=== PATIENT | female | born 1990 | race Caucasian/White ===

== ENCOUNTER 2016-07-30 12:47 | Emergency (ER) | payer SELFPAY ==
[~2016-07-30] VITALS: Ht 157.5 cm; Wt 117.8 kg
[2016-07-30 12:52] VITALS: BP 133/83
== END 2016-07-30 14:35 | disposition home or self-care (01) ==
LOC: ED 13:48
DX: N30.01 Acute cystitis with hematuria (principal)
CPT/HCPCS: 99283

== ENCOUNTER 2016-09-25 19:12 | Emergency (ER) | payer MEDICAID ==
[~2016-09-25] VITALS: Ht 157.5 cm; Wt 115.7 kg
[2016-09-25] MEDS ORDERED: ONDANSETRON ODT 4 MG PO ONE (19:30)
[2016-09-25] MEDS ORDERED: ONDANSETRON ODT 4 MG ONE (19:31)
[2016-09-25 20:09] LABS: ASPARTATE AMINO TRANSFERASE 21 U/L (15-37); BLOOD UREA NITROGEN 15 mg/dL (7-18)
[2016-09-25] MEDS ORDERED: SODIUM CHLORIDE FLUSH 10ML SYR IVF ONE (21:00)
[2016-09-25] MEDS ORDERED: MAALOX/HYOSCYAMINE/LIDOCAINE 45 ML BOTTLE PO ONE (21:00)
[2016-09-25] MEDS ORDERED: SODIUM CHLORIDE 0.9% 1,000ML IVBOLUS ONE (21:00)
[2016-09-25] MEDS ORDERED: FAMOTIDINE 20 MG/2 ML IVP ONE (21:00)
[2016-09-25] MEDS ORDERED: FAMOTIDINE 20 MG/2 ML ONE (21:18)
[2016-09-25] MEDS ORDERED: MAALOX/HYOSCYAMINE/LIDOCAINE 45 ML BOTTLE ONE (21:18)
[2016-09-25 21:28] VITALS: BP 113/79
== END 2016-09-25 22:24 | disposition home or self-care (01) ==
LOC: ED 22:18
DX: R11.2 Nausea with vomiting, unspecified (principal); R19.7 Diarrhea, unspecified; R10.13 Epigastric pain; Z88.6 Allergy status to analgesic agent
CPT/HCPCS: 36415; 76700; 80053; 81001; 83690; 84703; 85025; 87086; 96361; 96374; 99285; J7030; Q0162; S0028

== ENCOUNTER 2017-02-10 20:35 | Emergency (ER) | payer MEDICAID ==
[~2017-02-10] VITALS: Ht 157.5 cm; Wt 107.3 kg
[2017-02-10] MEDS ORDERED: DIAZEPAM 5 MG/ML, 2ML IM STA (21:27)
[2017-02-10] MEDS ORDERED: HYDROcodone/APAP 10/325 MG TABLET PO STA (21:27)
[2017-02-10] MEDS ORDERED: KETOROLAC 60 MG/2 ML IM ONE (21:30)
[2017-02-10] MEDS ORDERED: HYDROcodone/APAP 10/325 MG TABLET ONE (21:35)
[2017-02-10] MEDS ORDERED: KETOROLAC 30 MG/1 ML ONE (21:35)
[2017-02-10] MEDS ORDERED: DIAZEPAM 5 MG TABLET ONE (21:35)
[2017-02-10 23:45] VITALS: BP 136/76
== END 2017-02-10 23:47 | disposition home or self-care (01) ==
LOC: ED 23:30
DX: S39.012A Strain of muscle, fascia and tendon of lower back, initial encounter (principal); X58.XXXA Exposure to other specified factors, initial encounter; Y93.89 Activity, other specified; Y99.8 Other external cause status; Y92.89 Other specified places as the place of occurrence of the external cause
CPT/HCPCS: 96372; 99284; J1885; J3360

== ENCOUNTER 2018-02-03 02:53 | Emergency (ER) | payer BC ==
[~2018-02-03] VITALS: Ht 157.5 cm; Wt 133.6 kg
[2018-02-03 02:55] VITALS: BP 135/80
[2018-02-03] MEDS ORDERED: DEXAMETHASONE 4 MG TABLET ONE (03:24)
[2018-02-03] MEDS ORDERED: DEXAMETHASONE 4 MG TABLET PO ONE (03:30)
== END 2018-02-03 04:13 | disposition home or self-care (01) ==
LOC: ED 04:05
DX: J02.9 Acute pharyngitis, unspecified (principal); J00 Acute nasopharyngitis [common cold]
CPT/HCPCS: 87081; 87880; 99284

== ENCOUNTER 2018-02-06 21:38 | Emergency (ER) | payer BC ==
[~2018-02-06] VITALS: Ht 157.5 cm; Wt 131.7 kg
[2018-02-06 21:45] VITALS: BP 132/84
[2018-02-06] MEDS ORDERED: DIAZEPAM 5 MG TABLET ONE (22:13)
[2018-02-06] MEDS ORDERED: HYDROcodone/APAP 5/325 TABLET ONE (22:14)
[2018-02-06] MEDS ORDERED: DIAZEPAM 5 MG TABLET PO ONE (22:30)
[2018-02-06] MEDS ORDERED: HYDROcodone/APAP 5/325 TABLET PO ONE (22:30)
== END 2018-02-06 23:01 | disposition home or self-care (01) ==
LOC: ED 22:25
DX: S39.012A Strain of muscle, fascia and tendon of lower back, initial encounter (principal); M54.41 Lumbago with sciatica, right side; X58.XXXA Exposure to other specified factors, initial encounter; Y93.89 Activity, other specified; Y92.89 Other specified places as the place of occurrence of the external cause; Y99.8 Other external cause status
CPT/HCPCS: 99283

== ENCOUNTER 2020-09-20 10:51 | Emergency (ER) | payer BC ==
[~2020-09-20] VITALS: Ht 157.5 cm; Wt 148.6 kg
--- NOTE | 2020-09-20 11:27 | NUR ---
PT BIB SELF VIA POV D/T PAIN IN LEFT BACK/RIBS FOR PAST 3 DAYS. PER PT SHE WENT TO AND THEY SENT HER HERE. PER PT XRAY AND URINE AT WERE NEGATIVE. PT RESTING IN AUREA [place] AT THIS TIME, WCL[place].
[2020-09-20] MEDS ORDERED: HYDROmorphone 1 MG/ML, 1ML INJ IV ONE (11:30)
[2020-09-20] MEDS ORDERED: SODIUM CHLORIDE FLUSH 10ML SYR IVF ONE (11:30)
[2020-09-20] MEDS ORDERED: ONDANSETRON 2MG/ML, 2ML IVPush ONE (11:30)
[2020-09-20] MEDS ORDERED: ONDANSETRON 2MG/ML, 2ML ONE (11:39)
[2020-09-20] MEDS ORDERED: KETOROLAC 30 MG/1 ML ONE (11:39)
[2020-09-20 11:43] LABS: BASOPHILS % (AUTO) 1 % (0-1); EOSINOPHILS % (AUTO) 2 % (1-7); LYMPHOCYTES % (AUTO) 28 % (22-44); MD NO; MEAN CORPUSCULAR HEMOGLOBIN 25.8 pg (27.0-34.8); MEAN CORPUSCULAR HGB CONC 32.3 g/dL (32.4-35.8); MEAN PLATELET VOLUME 6.9 fL (7.4-10.4); MONOCYTES % (AUTO) 7 % (2-9); NEUTROPHILS % (AUTO) 64 % (42-75); PLATELET COUNT 360 x10^3/uL (130-400); RED BLOOD COUNT 5.09 x10^6/uL (3.82-5.3)
[2020-09-20 11:53] LABS: ALBUMIN 3.3 g/dL (3.4-5.0); ANION GAP 7 mmol/L (5-15); CALCIUM 8.8 mg/dL (8.5-10.1); CHLORIDE 106 mmol/L (98-107)
[2020-09-20 12:00] LABS: ALANINE AMINOTRANSFERASE 26 U/L (12-78); ALKALINE PHOSPHATASE 80 U/L (45-117); BILIRUBIN,TOTAL 0.5 mg/dL (0.2-1.0); TOTAL PROTEIN 7.2 g/dL (6.4-8.2)
[2020-09-20] MEDS ORDERED: KETOROLAC 30 MG/1 ML IVPush ONE (12:00)
[2020-09-20 13:21] VITALS: BP 147/91
== END 2020-09-20 13:23 | disposition home or self-care (01) ==
LOC: ED 11:30
DX: M54.5 Low back pain (principal); R10.9 Unspecified abdominal pain
CPT/HCPCS: 36415; 74176; 80053; 84703; 85025; 96374; 96375; 99284; J1885; J2405